=== PATIENT | female | born 1990 | race Caucasian/White ===

== ENCOUNTER 2019-06-23 13:17 | Emergency (ER) | payer MEDICAID ==
[~2019-06-23] VITALS: Ht 167.6 cm; Wt 56.2 kg
[2019-06-23 13:29] VITALS: BP 106/71
--- NOTE | 2019-06-23 13:32 | NUR ---
PT GIVEN URINE CUP, BUT UNABLE TO PROVIDE URINE AT THIS TIME
--- NOTE | 2019-06-23 13:32 | NUR ---
PT TO ER LOBBY WITH VS STABLE. PT ALERT AND AWAKE. ABDOMINAL GAURDING
--- NOTE | 2019-06-23 13:43 | NUR ---
pt to bed 6 with steady gait, still no urine
--- NOTE | 2019-06-23 13:52 | NUR ---
C/O EPIGASTRIC PAIN WITH N/V X LAST NIGHT. PAIN 10/10. PMH-GALLSTONES, GERD. PATIENT POSITIONED FOR COMFORT; HOB ELEVATED; BEDRAILS UP X1; BED DOWN. ER MD MADE AWARE OF PT STATUS.
--- NOTE | 2019-06-23 13:55 | NUR ---
Patient being evaluated by DR DENNIS at bedside.
[2019-06-23] MEDS ORDERED: NACL 0.9% 1,000 ML IV ONE (14:09)
[2019-06-23] MEDS ORDERED: NACL 0.9% 1,000 ML IV SCH (14:09)
[2019-06-23] MEDS ORDERED: FAMOTIDINE 20 MG/2 ML VIAL IVP ONE (14:10)
[2019-06-23] MEDS ORDERED: ONDANSETRON 4 MG/2 ML VIAL IVP ONE (14:10)
[2019-06-23] MEDS ORDERED: MORPHINE SULFATE 4 MG/ML SYR IVP ONE (14:10)
[2019-06-23 14:52] LABS: EOSINOPHILS % (AUTO) 0.1 % (0.0-4.0); HEMATOCRIT 41.8 % (36-48); HEMOGLOBIN 13.8 g/dL (12.0-16.0); LYMPHOCYTES # (AUTO) 0.8 K/uL (2.5-16.5); LYMPHOCYTES % (AUTO) 10.7 % (20.5-51.1); MEAN CORPUSCULAR HEMOGLOBIN 29 pg (27-31); MEAN CORPUSCULAR HGB CONC 33 g/dL (33-37); MEAN CORPUSCULAR VOLUME 86.7 fL (80-94); MONOCYTES # (AUTO) 0.3 K/uL (0.8-1.0); MONOCYTES % (AUTO) 4.2 % (1.7-9.3); NEUTROPHILS # (AUTO) 6.7 K/uL (1.8-7.7); PLATELET COUNT (AUTO) 216 K/uL (140-450); RED BLOOD CELL COUNT(AUTO) 4.82 MIL/uL (4.20-5.40); RED CELL DISTRIBUTION WIDTH 13.8 % (11.6-13.7); WHITE BLOOD COUNT (AUTO) 7.8 K/uL (4.8-10.8)
[2019-06-23 15:53] LABS: ANION GAP 11.6 (8-16); CARBON DIOXIDE 28.6 mmol/L (21-32); POTASSIUM 3.2 mmol/L (3.5-5.1)
[2019-06-23 15:54] LABS: ALBUMIN 3.4 g/dL (3.4-5.0); CREATININE 0.6 mg/dL (0.6-1.3)
[2019-06-23 17:02] LABS: TOTAL BILIRUBIN 0.9 mg/dL (0.0-1.0)
[2019-06-23 18:02] VITALS: BP 110/68
--- NOTE | 2019-06-23 18:02 | NUR ---
Patient discharged with v/s stable. Written and verbal after care instructions given and explained. Patient alert, oriented and verbalized understanding of instructions. Ambulatory with steady gait. All questions addressed prior to discharge. ID band removed. Patient advised to follow up with PMD. Rx of [employer] [facility] BENTYL given. Patient educated on indication of medication including possible reaction and side effects. Opportunity to ask questions provided and answered.
[2019-06-23 18:10] LABS: APPEARANCE,URINE HAZY (CLEAR); BILIRUBIN,URINE NEGATIVE (NEGATIVE); BLOOD, URINE NEGATIVE (NEGATIVE); COLOR,URINE YELLOW (YELLOW); LEUKOCYTE ESTERASE ,URINE 1+ (NEGATIVE); NITRITE, URINE NEGATIVE (NEGATIVE); PH,URINE 6.5 (5.0-9.0); UGLUCOSE NEGATIVE (NEGATIVE)
[2019-06-23 18:39] LABS: RBC,URINE 0-5 /HPF (0-5); WBC,URINE 0-5 /HPF (0-5)
== END 2019-06-23 18:02 | disposition home or self-care (01) ==
LOC: MED 13:17
DX: O99.611 Diseases of the digestive system complicating pregnancy, first trimester (principal); K80.70 Calculus of gallbladder and bile duct without cholecystitis without obstruction; K21.9 Gastro-esophageal reflux disease without esophagitis; F14.90 Cocaine use, unspecified, uncomplicated; Z3A.08 8 weeks gestation of pregnancy
CPT/HCPCS: 36415; 76705; 76801; 80053; 81001; 81025; 82150; 83690; 84702; 84703; 85025; 86900; 86901; 87086; 87186; 96361; 96374; 96375; 99284; J2270; J2405; J3490; J7030; Q0092

== ENCOUNTER 2020-01-31 11:26 | Emergency (ER) | payer MEDICAID ==
[~2020-01-31] VITALS: Ht 165.1 cm; Wt 87.1 kg
[2020-01-31 11:34] VITALS: BP 138/77
--- NOTE | 2020-01-31 11:40 | NUR ---
PT TAKEN TO [facility] BED C.
--- NOTE | 2020-01-31 11:45 | NUR ---
29/F presents to ED with complaints of left upper toothache x3 days. Patient denies any fever or chills. Patient states she called her dentist and were told there was nothing they could do about it. Patient has swelling to cheek and c/o radiating pain up to head.
[2020-01-31] MEDS ORDERED: HYDROcodone/APAP 5/325 MG 1 TAB TAB PO ONE (12:10)
--- NOTE | 2020-01-31 12:14 | NUR ---
pts mother in law will be driving her home.
[2020-01-31 12:15] VITALS: BP 105/60
--- NOTE | 2020-01-31 12:15 | NUR ---
Patient discharged with v/s stable. Written and verbal after care instructions given and explained. Patient alert, oriented and verbalized understanding of instructions. Ambulatory with steady gait. All questions addressed prior to discharge. ID band removed. Patient advised to follow up with PMD. Rx of norco, augmentin, and naprosyn given. Patient educated on indication of medication including possible reaction and side effects. Opportunity to ask questions provided and answered.
== END 2020-01-31 12:15 | disposition home or self-care (01) ==
LOC: MED 11:26
DX: K08.89 Other specified disorders of teeth and supporting structures (principal); K21.9 Gastro-esophageal reflux disease without esophagitis
CPT/HCPCS: 99283

== ENCOUNTER 2020-04-20 04:12 | Emergency (ER) | payer MEDICAID ==
[~2020-04-20] VITALS: Ht 175.3 cm; Wt 96.2 kg
[2020-04-20 04:16] VITALS: BP 151/110
--- NOTE | 2020-04-20 04:21 | NUR ---
PT AMBULATED TO ER BED 11 W/ STEADY GAIT.
--- NOTE | 2020-04-20 04:25 | NUR ---
PT 30 Y/O FEMALE BIB SELF FOR C/O EPIGASTRIC PAIN RADIATING TO R LATERAL SIDE OF ABD. PT STATES PAIN IS 9/10 AND HAS COME AND GONE X 2 WEEKS. PT ADMITS TO TAKING OTC MEDICATION TO HELP WITH PAIN MANAGEMENT, BUT THEY WERE INEFFECTIVE TONIGHT. PT ABD IS SOFT, ROUND, AND NON-TENDER TO TOUCH. PT ABD SOUNDS PRESENT X 4. PT ADMITS TO NAUSEA BUT NO V/D. VSS. PT BED LOCKED AND IN LOWEST POSITION. MEDHX: GALLSTONES ALLERGIES: NKA
--- NOTE | 2020-04-20 04:30 | NUR ---
ERMD AT BEDSIDE.
[2020-04-20] MEDS ORDERED: ONDANSETRON 4 MG/2 ML VIAL IVP ONE (04:35)
[2020-04-20] MEDS ORDERED: MORPHINE SULFATE 4 MG/ML SYR IVP ONE (04:35)
[2020-04-20] MEDS ORDERED: PANTOPRAZOLE 40 MG INJ VIAL IVP ONE (04:40)
--- NOTE | 2020-04-20 05:10 | NUR ---
CONSENT SIGNED FOR CT WITH CONTRAST OF ABD.
--- NOTE | 2020-04-20 05:46 | NUR ---
PT RESTING IN BED WITH EYES OPEN. PT RESPONSIVE TO VERBAL STIMULI. PT BED IS LOCKED AND IN LOWEST POSTION.
[2020-04-20 05:56] LABS: BASOPHILS % (AUTO) 0.3 % (0.0-2.0); EOSINOPHILS # (AUTO) 0.1 K/uL (0-0.4); EOSINOPHILS % (AUTO) 1.4 % (0.0-4.0); HEMATOCRIT 39.7 % (36-48); HEMOGLOBIN 13.3 g/dL (12.0-16.0); LYMPHOCYTES # (AUTO) 2.3 K/uL (2.5-16.5); LYMPHOCYTES % (AUTO) 39.1 % (20.5-51.1); MEAN CORPUSCULAR HEMOGLOBIN 28 pg (27-31); MEAN CORPUSCULAR HGB CONC 33 g/dL (33-37); MEAN CORPUSCULAR VOLUME 83.9 fL (80-94); MONOCYTES # (AUTO) 0.6 K/uL (0.8-1.0); MONOCYTES % (AUTO) 9.4 % (1.7-9.3); NEUTROPHILS # (AUTO) 2.9 K/uL (1.8-7.7); NEUTROPHILS % (AUTO) 49.8 % (42.2-75.2); PLATELET COUNT (AUTO) 231 K/uL (140-450); RED BLOOD CELL COUNT(AUTO) 4.74 MIL/uL (4.20-5.40); RED CELL DISTRIBUTION WIDTH 14.5 % (11.6-13.7); WHITE BLOOD COUNT (AUTO) 5.9 K/uL (4.8-10.8)
[2020-04-20 06:06] LABS: ALBUMIN 3.3 g/dL (3.4-5.0); ANION GAP 12.1 (8-16); CARBON DIOXIDE 25.5 mmol/L (21-32); CREATININE 0.7 mg/dL (0.6-1.3); POTASSIUM 3.6 mmol/L (3.5-5.1); TOTAL BILIRUBIN 0.3 mg/dL (0.0-1.0)
--- NOTE | 2020-04-20 06:34 | NUR ---
PT TAKEN TO CT VIA W/C.
--- NOTE | 2020-04-20 07:00 | NUR ---
PT HAS C/O RQU ABD PAIN 05/17. ERMD MADE AWARE AND GAVE NEW ORDERS.
[2020-04-20] MEDS ORDERED: MORPHINE SULFATE 2 MG/ML SYR IVP ONE (07:05)
--- NOTE | 2020-04-20 07:11 | NUR ---
GAVE REPORT TO ROSANNA LONG, CONTINUATION OF CARE.
--- NOTE | 2020-04-20 07:12 | NUR ---
Received report from ETHAN Piper. Transfer of care at this time
--- NOTE | 2020-04-20 07:37 | NUR ---
IV discontinued and 2x2 gauze placed to IV site.
[2020-04-20 07:38] VITALS: BP 149/99
--- NOTE | 2020-04-20 07:38 | NUR ---
Patient discharged with v/s stable. Written and verbal after care instructions given and explained. Patient alert, oriented and verbalized understanding of instructions. Ambulatory with steady gait. All questions addressed prior to discharge. ID band removed. Patient advised to follow up with PMD. Rx of Protonix 40mg given. Patient educated on indication of medication including possible reaction and side effects. Opportunity to ask questions provided and answered. Pt advised to follow up with surgeon within 3 days of visit. Verbalizes understanding.
== END 2020-04-20 07:38 | disposition home or self-care (01) ==
LOC: MED 04:12
DX: R10.13 Epigastric pain (principal); K21.9 Gastro-esophageal reflux disease without esophagitis; N21.0 Calculus in bladder; I10 Essential (primary) hypertension; E66.8 Other obesity; K75.89 Other specified inflammatory liver diseases
CPT/HCPCS: 36415; 74177; 80053; 81002; 81025; 83690; 84703; 85025; 96374; 96375; 96376; 99285; C9113; J2270; J2405; Q9967

== ENCOUNTER 2023-05-18 01:15 | Emergency (ER) | payer MEDICAID ==
[~2023-05-18 01:15] MED LIST: CYCL-654 PO
== END 2023-05-18 02:12 | disposition left against medical advice (07) ==
LOC: MED 01:15
DX: T14.8XXA Other injury of unspecified body region, initial encounter (principal); Z53.21 Procedure and treatment not carried out due to patient leaving prior to being seen by health care provider; W57.XXXA Bitten or stung by nonvenomous insect and other nonvenomous arthropods, initial encounter; Y93.89 Activity, other specified; Y92.89 Other specified places as the place of occurrence of the external cause; Y99.8 Other external cause status